=== PATIENT | male | born 1960 | race Caucasian/White ===

== ENCOUNTER 2023-04-28 14:11 | Outpatient (RCR) | payer OTHER, SELFPAY ==
[2023-04-28 14:24] LABS: Basophils Percent Auto 0.6 % (0.2-1.2); Eosinophils Absolute Auto 0.2 K/mm3 (0-0.3); Hematocrit 40.3 % (42.0-52.0); Immature Granulocyte Absolute 0.01 K/mm3 (0.00-0.031); Immature Granulocyte Percent A 0.1 % (0-0.5); Lymphocytes Absolute Auto 1.83 K/mm3 (0.9-3.2); Lymphocytes Percent Auto 25.8 % (18.3-44.2); Mean Corpuscular HGB Conc 29.8 g/dl (32-36); Mean Corpuscular Hemoglobin 25.4 pg (26-34); Mean Corpuscular Volume 85.2 fl (80-100); Mean Platelet Volume 9.7 fl (7.4-10.4); Monocytes Absolute Auto 0.8 K/mm3 (0.1-0.6); Monocytes Percent Auto 10.7 % (2.6-8.5); Neutrophils Absolute Auto 4.3 K/mm3 (1.3-6.7); Neutrophils Percent Auto 59.8 % (45.5-73.1); Platelet Count Result 293 k/mm3 (150-375); Red Blood Count 4.73 M/mm3 (4.6-6.20); Red Cell Distribution Width 22.2 % (11.5-14.5); White Blood Count 7.1 K/mm3 (4.5-10.0)
[2023-04-28 14:29] LABS: Blood Urea Nitrogen 28 mg/dL (8-26); Carbon Dioxide 25 mmol/L (22-30); Chloride 105 mmol/L (98-109); Estimated Glomerular Filt Rate 26; Glucose 88 mg/dL (70-105); Potassium 4.5 mmol/L (3.5-4.9); Sodium 140 mmol/L (138-146)
[2023-04-28 14:30] LABS: Anisocytosis 1+ (NORMAL); Hypochromasia 1+ (NORMAL); Platelet Estimate Adequate (Adequate); Schistocytes None Seen (NORMAL)
[2023-04-28 14:31] LABS: Ovalocytes 1+ (NORMAL); Poikilocytosis 1+ (NORMAL)
[2023-04-28 15:36] LABS: Iron 141 ug/dL (49-181)
[2023-04-28 15:38] LABS: Alanine Aminotransferase 17 U/L (6-50); Albumin Level 4.3 g/dL (3.5-5.1); Alkaline Phosphatase 45 U/L (38-126); Anion Gap 9 mmol/L (8-16); Aspartate Amino Transferase 27 U/L (17-59); Bilirubin,Total 0.2 mg/dL (0.2-1.3); Blood Urea Nitrogen 28 mg/dL (9-20); Calcium 9.5 mg/dL (8.4-10.2); Carbon Dioxide 25 mmol/L (22-30); Chloride 104 mmol/L (98-107); Estimated Glomerular Filt Rate 30; Glucose 90 mg/dL (65-110); Potassium 4.6 mmol/L (3.4-5.0); Sodium 138 mmol/L (137-145)
[2023-04-28 15:45] LABS: Percent Iron Saturation 31 % (20-50)
[2023-05-02 17:23] LABS: Albumin 3.9 g/dL (3.8-4.8); Alpha 1 Globulin 0.3 g/dL (0.2-0.3); Alpha 2 Globulin 0.6 g/dL (0.5-0.9); Beta 1 Globulin 0.6 g/dL (0.4-0.6); Protein, Total 6.8 g/dL (6.1-8.1); Testosterone Free 73.2 pg/mL (35.0-155.0); Testosterone Total 546 ng/dL (250-1100)
== END 2023-08-29 08:50 ==
LOC: AMCINF 14:11
PROVIDERS: PCP Internal Medicine; Visit Provider Internal Medicine
DX: D64.9 Anemia, unspecified (principal)
CPT/HCPCS: 36415; 80047; 80053; 82607; 82728; 82746; 83540; 83550; 84155; 84165; 84402; 84403; 85025